=== PATIENT | female | born 1945 | race Caucasian/White ===

== ENCOUNTER 2017-04-19 11:55 | Day surgery (SDC) | payer MEDICARE, OTHER ==
[~2017-04-19] VITALS: Ht 165.1 cm; Wt 107.0 kg
[~2017-04-19 11:55] MED LIST: ASPIRIN EC81 MG PO; ASPIRIN325 MG PO; BENTYL20 MG PO; DAILY GARLIC O400 MG PO; DICYCLOMINE HCL20 MG PO; FEOSOL45 MG PO; IBUPROFEN800 MG PO; IRON27 MG PO; IRON325 M1 PO; LEVOTHROID50 MCG PO; LEVOTHYROXINE75 MCG PO; LISINOPRIL-HCT1 EACH PO; METOPROLOL SUCC25 MG PO; NORCO 5-325 TA1 EACH PO; OCUVITE EYE +1 EACH PO; PANTOPRAZOLE SO20 MG PO; PANTOPRAZOLE SO40 MG PO; PROTONIX20 MG PO; TUMS200 MG PO; VITAMIN D250000 UNIT PO; ZESTRIL40 MG PO
--- NOTE | 2017-04-19 13:49 | NUR ---
RIGHT HAND IV CDI ON ARRIVAL TO PACU.
--- NOTE | 2017-04-19 13:52 | NUR ---
[facility].
--- NOTE | 2017-04-19 14:10 | NUR ---
IV DC'D, TIP INTACT.
--- NOTE | 2017-05-07 07:48 | OR ---
[facility] [address], [place] [address] Signed DATE OF PROCEDURE: 04/19/17 PREOPERATIVE DIAGNOSIS: Episodic diarrhea. POSTOPERATIVE DIAGNOSIS Small polyp of splenic flexure (excised), no evidence of obvious colitis. PROCEDURE Total colonoscopy to cecum with biopsy of rectum and excision of polyp at splenic flexure. ANESTHESIA Intravenous sedation with Propofol infusion, Efren Parker CRNA. INDICATION This markedly debilitated 71-year-old obese white woman is a patient Dr. Guerrier and known to me from the past. She underwent cholecystectomy in 1983. She has had colonoscopy and 2007, and 2012. She has medical problems of diabetes, hypothyroidism, hypertension, and "irregular heartbeat" as well as asthma and sleep apnea, in addition to her obesity. She has complained of diarrhea most commonly in the evening if she eats late. She has had no blood per rectum. She has had a polyp on colonoscopy in the past. She is admitted to undergo colonoscopy to better characterize the source of her diarrhea and understand the risks of bleeding, infection, and perforation. FINDINGS The prep wa s good. Complete colonoscopy was undertaken to the cecum. Propofol infusional anesthesia was used based on her elevated ASA level. There was a very small polyp noted at splenic flexure, which was excised with cold morcellation technique. Biopsy of the rectum was undertaken, the mucosa did not look excessively abnormal. DESCRIPTION OF PROCEDURE The patient brought to the endoscopy suite and placed in lateral decubitus position. Given intravenous sedation to the point of slurred speech and nystagmus with Propofol infusional technique with full cardiopulmonary monitoring by the adjunct nursing faculty. A digital rectal examination was normal. An Olympus video colonoscope was passed in the rectum and manipulated throughout the colon. Ultimately intubating the cecum, the ileocecal valve and appendiceal orifice were normal. Scope was withdrawn from that point and irrigation undertaken as necessary. Electronically Signed By: NATASHA MICHELLE MD 05/07/17 0748 PATIENT NAME: DONAVON ARNOLD OPERATIVE REPORT DATE OF : 47 PHYSICIAN: NATASHA MICHELLE MD REPORT #: [id number] REPORT IS CONFIDENTIAL AND NOT TO BE RELEASED WITHOUT AUTHORIZATION [facility] [address], [place] [address] Signed There was no overt sign of colitis. A small polyp was noted at the splenic flexure, which was excised with cold morcellation t perlita. Further withdrawal of scope showed no other abnormality and the rectum itself had mild inflammatory change, but not much and probably not a pathologic finding really. Biopsies were obtained to assess for occult colitis. Retroflexed view was unde rtaken, was normal as well. The scope was removed. The patient was taken to recovery room in good condition. CONCLUDING DIAGNOSES Small polyp at splenic flexure. Uncertain inflammatory change of rectum. PLAN We will consider empiric treatment with Questran 4 g p.o. b.i.d. if biopsies are negative for signs of actual colitis. Repeat colonoscopy will be dependent on the histology of the polyp. If hyperplastic, standard recommendation 10 years and if adenomatous, 3 to 5. MD BERNARD Traylor/[place] /[id number] cc: Jorgito Guerrier DO Electronically Signed By: NATASHA MICHELLE MD 05/07/17 0748 PATIENT NAME: CLAYTONDONAVON M OPERATIVE REPORT DATE OF : 47 PHYSICIAN: NATASHA MICHELLE MD REPORT #: [id number] REPORT IS CONFIDENTIAL AND NOT TO BE RELEASED WITHOUT AUTHORIZATION
== END 2017-04-19 14:28 | disposition home or self-care (01) ==
LOC: OPS 11:55 → DS 11:55 → OPS 13:00 → DS 13:00 → OPS 14:28
PROVIDERS: Surgery
PROC: 0DBL8ZX Excision of Transverse Colon, Via Natural or Artificial Opening Endoscopic, Diagnostic (ICD-10-PCS; 2017-04-19)
PROC: 0DBP8ZX Excision of Rectum, Via Natural or Artificial Opening Endoscopic, Diagnostic (ICD-10-PCS; principal; 2017-04-19 13:00)
DX: D12.3 Benign neoplasm of transverse colon (principal); K62.1 Rectal polyp; E66.9 Obesity, unspecified; G47.30 Sleep apnea, unspecified; K21.9 Gastro-esophageal reflux disease without esophagitis; E03.9 Hypothyroidism, unspecified; I10 Essential (primary) hypertension; E11.9 Type 2 diabetes mellitus without complications; Z88.5 Allergy status to narcotic agent; Z88.1 Allergy status to other antibiotic agents; Z88.8 Allergy status to other drugs, medicaments and biological substances; Z98.51 Tubal ligation status; Z90.49 Acquired absence of other specified parts of digestive tract; Z98.890 Other specified postprocedural states; Z68.38 Body mass index [BMI] 38.0-38.9, adult
CPT/HCPCS: 00810; 88305; J2704; J7120

== ENCOUNTER 2017-07-18 12:38 | Emergency (ER) | payer MEDICARE, OTHER ==
[~2017-07-18] VITALS: Ht 165.1 cm; Wt 107.0 kg
[2017-07-18] MEDS ORDERED: PANTOPRAZOLE SO40 MG PO (13:30)
[2017-07-18] MEDS ORDERED: MAGNESIUM250 MG PO (13:31)
--- NOTE | 2017-07-19 07:11 | EKG ---
[facility] [address] [place], [place] [address] Signed Normal sinus rhythm Normal ECG When compared with ECG of 28-AUG-2016 19:59, No significant change was found Confirmed by ANNIE ACOSTA MD ([id number]) on 07/19/2017 7:10:54 AM Electronically Signed By: ANNIE ACOSTA MD 07/19/17 0711 PATIENT NAME: DONAVON ARNOLD Electrocardiogram DATE OF : 47 PHYSICIAN: ANNIE ACOSTA MD REPORT #: [id number] REPORT IS CONFIDENTIAL AND NOT TO BE RELEASED WITHOUT AUTHORIZATION
== END 2017-07-18 16:36 | disposition home or self-care (01) ==
LOC: ED 12:38
DX: R07.89 Other chest pain (principal); I10 Essential (primary) hypertension; K21.9 Gastro-esophageal reflux disease without esophagitis; Z87.891 Personal history of nicotine dependence; Z98.51 Tubal ligation status; Z90.49 Acquired absence of other specified parts of digestive tract; Z88.0 Allergy status to penicillin; Z88.5 Allergy status to narcotic agent; Z88.6 Allergy status to analgesic agent; Z88.8 Allergy status to other drugs, medicaments and biological substances; Z91.012 Allergy to eggs; Z79.82 Long term (current) use of aspirin; Z79.899 Other long term (current) drug therapy
CPT/HCPCS: 71046; 80053; 84484; 85025; 93005; 93010; 99284

== ENCOUNTER 2021-04-20 11:41 | Emergency (ER) | payer MEDICARE, OTHER ==
[~2021-04-20] VITALS: Ht 165.1 cm; Wt 99.7 kg
[~2021-04-20 11:41] MED LIST changes: +GARLIC1 EAC1 PO; +MAGNESIUM250 MG PO
--- OUTSIDE RECORDS SUMMARY | 2021-04-21 13:05 | XMS ---
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 - 2 Visits in 30 Days CARE PROVIDERS There are no care providers on record at this time. [place] has no Care Guidelines for this patient. Juan[place] VISIT COUNT (12 MO.) [address] [facility] TOTAL 2 NOTE: Visits indicate total known visits. ED/[facility] [place] TRACKING (12 MO.) 04/20/2021 11:41 [facility] [place] TYPE: Emergency COMPLAINT: - MOUSE BITE 03/24/2021 18:[address] [facility] [facility] [place] TYPE: Emergency COMPLAINT: - ABDOMINAL PAIN DIAGNOSES: - Right lower quadrant pain - Unspecified asthma, uncomplicated - Other group home (current) drug therapy - Essential (primary) hypertension - Allergy status to narcotic agent - Allergy status to penicillin - Gastro-esophageal reflux disease without esophagitis - Type 2 diabetes mellitus without complications - Unspecified osteoarthritis, unspecified site - Allergy to eggs - Personal history of nicotine dependence - Allergy status to other drugs, medicaments and biological substances INPATIENT VISIT TRACKING (12 MO.) No inpatient visits to display in this time frame [email or web address]
== END 2021-04-20 13:43 | disposition home or self-care (01) ==
LOC: ED 11:41
DX: S91.351A Open bite, right foot, initial encounter (principal); W53.01XA Bitten by mouse, initial encounter; Z23 Encounter for immunization; J45.909 Unspecified asthma, uncomplicated; I10 Essential (primary) hypertension; E11.9 Type 2 diabetes mellitus without complications; M19.90 Unspecified osteoarthritis, unspecified site; K21.9 Gastro-esophageal reflux disease without esophagitis; Z87.891 Personal history of nicotine dependence; Z88.0 Allergy status to penicillin; Z88.5 Allergy status to narcotic agent; Z91.012 Allergy to eggs; Z88.6 Allergy status to analgesic agent; Z79.899 Other long term (current) drug therapy
CPT/HCPCS: 90471; 90715; 99283

== ENCOUNTER 2021-09-15 16:57 | Emergency (ER) | payer MEDICARE ==
[~2021-09-15] VITALS: Ht 165.1 cm; Wt 99.3 kg
== END 2021-09-15 19:45 | disposition home or self-care (01) ==
LOC: ED 16:57
DX: R10.31 Right lower quadrant pain (principal); I10 Essential (primary) hypertension; E11.9 Type 2 diabetes mellitus without complications; K21.9 Gastro-esophageal reflux disease without esophagitis; M19.90 Unspecified osteoarthritis, unspecified site; Z87.891 Personal history of nicotine dependence; Z88.0 Allergy status to penicillin; Z91.012 Allergy to eggs; Z88.5 Allergy status to narcotic agent; Z88.6 Allergy status to analgesic agent; Z88.8 Allergy status to other drugs, medicaments and biological substances; Z79.899 Other long term (current) drug therapy
CPT/HCPCS: 36415; 80053; 81001; 84443; 85025; 99284

== ENCOUNTER 2021-10-16 14:43 | Emergency (ER) | payer MEDICARE ==
[~2021-10-16] VITALS: Ht 165.1 cm; Wt 90.9 kg
[2021-10-16] MEDS ORDERED: LISINOPRIL20 MG PO (19:06)
== END 2021-10-16 19:26 | disposition home or self-care (01) ==
LOC: ED 14:43
DX: R10.31 Right lower quadrant pain (principal); R10.32 Left lower quadrant pain; E87.1 Hypo-osmolality and hyponatremia; J45.909 Unspecified asthma, uncomplicated; I10 Essential (primary) hypertension; E11.9 Type 2 diabetes mellitus without complications; M19.90 Unspecified osteoarthritis, unspecified site; K21.9 Gastro-esophageal reflux disease without esophagitis; Z87.891 Personal history of nicotine dependence; Z88.0 Allergy status to penicillin; Z91.012 Allergy to eggs; Z88.5 Allergy status to narcotic agent; Z88.8 Allergy status to other drugs, medicaments and biological substances; Z79.899 Other long term (current) drug therapy
CPT/HCPCS: 36415; 74177; 80053; 81001; 83690; 85025; 96374; 96375; 99284-25; J7030

== ENCOUNTER 2025-05-16 15:58 | Emergency (ER) | payer MEDICARE ==
[~2025-05-16] VITALS: Ht 165.1 cm; Wt 82.0 kg
[~2025-05-16 15:58] MED LIST changes: +LISINOPRIL20 MG PO
--- OUTSIDE RECORDS SUMMARY | 2025-05-16 15:59 | XMS ---
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 - 2 Visits in 30 Days CARE PROVIDERS There are no care providers on record at this time. [place] has no Care Guidelines for this patient. [place] NOTE: Visits indicate total known visits. [facility] VISIT TRACKING (12 MO.) [facility] [place] [facility] COMPLAINT: - SKIN PROBLEM 05/13/2025 11:19 [facility] [place] TYPE: Emergency COMPLAINT: - SKIN ISSUES INPATIENT VISIT TRACKING (12 MO.) No inpatient visits to display in this time frame [email or web address]
[2025-05-16] MEDS ORDERED: GABAPENTIN300 MG PO (20:21)
[2025-05-16 20:57] LABS: BASOPHILS 0.6 % (0.1-1.2); EOSINOPHILS 4.6 % (0.7-5.8); LYMPHOCYTES 36.9 % (19.3-51.7); MCH 30.9 PG (25.6-32.2); MCHC 33.1 g/dL (32.2-35.5); MCV 93.3 fL (79.4-94.8); MONOCYTES 9.6 % (4.7-12.5); NEUTROPHILS 48.1 % (34.0-71.1); RBC 3.14 M/uL (3.93-5.22)
[2025-05-16 22:05] LABS: ALT (SGPT) 12.0 U/L (14-59); AST (SGOT) 9.0 U/L (15-37); GLOMERULAR FILTRATION RATE,EST 53.0 mL/min (>60); PROTEIN, TOTAL 6.9 g/dL (6.4-8.2); UREA NITROGEN 22.0 mg/dL (7-18)
[2025-05-16 22:15] LABS: LACTIC ACID, BLOOD 0.6 mmol/L (0.4-2.0)
[2025-05-16] MEDS ORDERED: CEPHALEXIN MONOHYDRATE 500 MG HOME.PACK PO ONE (23:30)
[2025-05-16] MEDS ORDERED: FUROSEMIDE 40 MG TAB PO ONE (23:30)
[2025-05-16] MEDS ORDERED: POTASSIUM CHLORIDE 10 MEQ TABCR PO ONE (23:30)
[2025-05-16] MEDS ORDERED: CEPHALEXIN500 M1 PO (23:37)
[2025-05-16] MEDS ORDERED: [UNRECOGNIZED DRUG - OTHER] TOP (23:37)
[2025-05-16] MEDS ORDERED: LASIX40 MG PO (23:40)
[2025-05-16] MEDS ORDERED: KLOR-CON M2020 MEQ PO (23:40)
[2025-05-17 00:16] VITALS: BP 104/62
== END 2025-05-17 00:17 | disposition home or self-care (01) ==
LOC: ED 15:58
PROVIDERS: Internal Medicine
DX: I87.2 Venous insufficiency (chronic) (peripheral) (principal); I10 Essential (primary) hypertension; E11.9 Type 2 diabetes mellitus without complications; M19.90 Unspecified osteoarthritis, unspecified site; K21.9 Gastro-esophageal reflux disease without esophagitis; Z79.899 Other long term (current) drug therapy; Z88.0 Allergy status to penicillin; Z88.5 Allergy status to narcotic agent; Z91.0120 Allergy to eggs, unspecified; Z88.6 Allergy status to analgesic agent; Z88.8 Allergy status to other drugs, medicaments and biological substances; Z87.891 Personal history of nicotine dependence
CPT/HCPCS: 36415; 80053; 83605; 83880; 85025; 99283; A9270